=== PATIENT | male | born 1975 | race Caucasian/White ===

== ENCOUNTER 2020-04-16 12:19 | Inpatient (IN) | payer OTHER ==
--- NOTE | 2020-04-16 12:55 | BHS.RME ---
2018 N Coronavirus Screen - COVID-19 Screening Questions Dx of COVID-19 or had a positive test in the last 4 weeks?: No Contact with known/suspected COVID patient in last 14 days?: No Any of these symptoms or contact with someone who has?: None Traveled domestically/internationally in the last 14 days?: No Screen score: 0 Screen result: Further Evaluation Substance Use & Tx History - Substance Use History Alcohol Substance amount: 5 nips Frequency of use: Daily Substance route: Oral Date of Last Use: 04/15/20 (started age 17) Nicotine Substance amount: former smoker stopped 10 years ago - Last Treatment Date of last treatment: 2018 Treatment type: Substance Use Disorder (LEIDY) Where was last treatment: Detox Physical/Psych/Mental Status - Behavior General Behavior: Increased activity (restlessness, agitation) Eye Contact: Normal - Cooperativeness Cooperativeness: Cooperative - Thinking Thought Processes: Tight, Logical, Goal Directed - Physical Health Problems Is patient presently having any pain?: No Does patient presently have any injuries (include location): No Does patient currently have a fever: No Is patient : No CIWA Nausea/Vomitin Muscle Tremors: 4-Moderate,w/Arms Extend Anxiety: 4-Mod. Anxious/Guarded Agitation: 4-Moderately Restless Paroxysmal Sweats: 2 Orientation: 0-Oriented Tacttile Disturbances: 0-None Auditory Disturbances: 0-None Visual Disturbances: 0-None Headache: 0-None Present CIWA-Ar Total Score: 16
[2020-04-16 13:10] VITALS: BMI 23.7
--- NOTE | 2020-04-16 13:40 | HP ---
CIWA Score Nausea/Vomitin Muscle Tremors: 4-Moderate,w/Arms Extend Anxiety: 4-Mod. Anxious/Guarded Agitation: 4-Moderately Restless Paroxysmal Sweats: 2 Orientation: 0-Oriented Tacttile Disturbances: 0-None Auditory Disturbances: 0-None Visual Disturbances: 0-None Headache: 0-None Present CIWA-Ar Total Score: 16 - Admission Criteria OASAS Guidelines: Admission for Medically Managed Detox: Requires at least one of the followin. CIWA greater than 12 2. Seizures within the past 24 hours 3. Delirium tremens within the past 24 hours 4. Hallucinations within the past 24 hours 5. Acute intervention needed for co occurring medical disorder 6. Acute intervention needed for co occurring psychiatric disorder 7. Severe withdrawal that cannot be handled at a lower level of care (continued vomiting, continued diarrhea, abnormal vital signs) requiring intravenous medication and/or fluids 8. Admitting History and Physical - Admission Chief Complaint: 45 yo M presenting for detox from alcohol; "for my problem with alcohol." History of Present Illness: 45 yo M presenting for detox from alcohol; "for my problem with alcohol." This is the pt's first time at [facility]. Pt last completed detox at [facility] in May 2019 (completed 5 days of detox). Pt reports being sober for 6-7 weeks and relapsing briefly (a few days) in July 2019 but then being sober again until January 2020. After relapsing in December, he hasn't had any periods of sobriety. Regarding his relapses, pt reports multiple tragic deaths in family in the past that cause chronic anxiety/depression (including sister committing suicide), declining health of his father, losing job, and interpersonal stressors with and kids. Pt reports "will power" and "keeping busy" helped him stay sober. Pt reports no prior detox admissions prior to [facility]. Pt reports no previous seizures; 1 blackout a year ago. Pt reports accidental OD of wellbutrin 2 months ago; was treated in hospital and admitted for 5 days in a psychiatric yost. PMH: HLD (lipitor), HTN (?amlodipine) PSH: plastic surgery (cosmetic) for bilateral ears in December Pscyh: chronic anxiety, depression, insomnia (wellbutrin, quetiapine, and ambien) Soc/Domiciled: Lives at home with and 2 kids. Legal: none 2019 N Coronavirus Screen - COVID-19 Screening Questions Dx of COVID-19 or had a positive test in the last 4 weeks?: No Contact with known/suspected COVID patient in last 14 days?: No Any of these symptoms or contact with someone who has?: None Traveled domestically/internationally in the last 14 days?: No Screen score: 0 Screen result: Further Evaluation Substance Use & Tx History - Substance Use History Alcohol Substance amount: 5 nips Frequency of use: Daily Substance route: Oral Date of Last Use: 04/15/20 (started age 17) Nicotine Substance amount: former smoker stopped 10 years ago - Last Treatment Date of last treatment: 2018 Treatment type: Substance Use Disorder (LEIDY) Where was last treatment: Detox History Source: Patient Limitations to Obtaining History: No Limitations - Past Medical History Cardiovascular: Yes: HTN, Hyperlipdemia Admission ROS [facility] - Ebola screening Have you traveled outside of the country in the last 21 days: No Have you been sick,other than usual withdrawal symptoms: No Do you have a fever: No - Review of Systems Constitutional: Diaphoresis (paroxysmal sweats), Changes in sleep (insomnia) EENT: reports: Blurred Vision (reports recently he hasn't been able to see clearly up close) Respiratory: reports: No Symptoms reported Cardiac: reports: No Symptoms Reported GI: reports: Nausea : reports: No Symptoms Reported Musculoskeletal: reports: No Symptoms Reported Integumentary: reports: No Symptoms Reported Neuro: reports: Tremors (mild trmeors) Hematology: reports: No Symptoms Reported Psychiatric: reports: Agitated (moderately restless), Anxious (moderately anxious), Depressed (mildly depressed (no SI/HI); no SAs previously) Patient History - Smoking Cessation Smoking history: Former smoker Have you smoked in the past 12 months: No Initiated information on smoking cessation: No Admission Physical Exam [facility] - Vital Signs Vital Signs: Vital Signs - 24 hr 04/16/20 13:01 Temperature 97.5 F L Pulse Rate 97 H Respiratory 18 Rate Blood Pressure 144/86 - Physical General Appearance: Yes: No Apparent Distress, Nourished, Appropriately Dressed HEENTM: Yes: EOMI, Hearing grossly Normal, Normocephalic, Normal Voice Respiratory: Yes: Lungs Clear, Normal Breath Sounds, No Respiratory Distress, No Accessory Muscle Use Neck: Yes: Supple, Trachea in good position Breast: Yes: Breast Exam Deferred Cardiology: Yes: Regular Rhythm Abdominal: Yes: Normal Bowel Sounds, Non Tender, Flat, Soft Genitourinary: Yes: Other (deferred) Back: Yes: Normal Inspection Musculoskeletal: Yes: full range of Motion, Gait Steady Extremities: Yes: Normal Inspection, Normal Range of Motion, Non-Tender, Tremors (mild) Neurological: Yes: Fully Oriented, Alert, Motor Strength 5/5 Integumentary: Yes: Normal Color, Dry, Warm - Diagnostic (1) Alcohol dependence Current Visit: Yes Status: Acute Qualifiers: Substance use status: in withdrawal Complication of substance-induced condition: uncomplicated Qualified Code(s): F10.230 - Alcohol dependence with withdrawal, uncomplicated (2) HTN (hypertension) Current Visit: Yes Status: Acute Qualifiers: Hypertension type: unspecified Qualified Code(s): I10 - Essential (primary) hypertension (3) HLD (hyperlipidemia) Current Visit: Yes Status: Acute Qualifiers: Hyperlipidemia type: unspecified Qualified Code(s): E78.5 - Hyperlipidemia, unspecified (4) Depression Current Visit: Yes Status: Chronic Qualifiers: Depression Type: major depressive disorder Major depression recurrence: unspecified whether recurrent Active/Remission status: currently active Major depression episode severity: mild Qualified Code(s): F32.0 - Major depressive disorder, single episode, mild (5) Insomnia Current Visit: Yes Status: Chronic Qualifiers: Insomnia type: unspecified Qualified Code(s): G47.00 - Insomnia, unspecified (6) Anxiety Current Visit: Yes Status: Chronic Cleared for Admission S - Detox or Rehab [facility] Level of Care: Medically Managed Detox Regimen/Protocol: Librium Breathalyzer - Breathalyzer Breathalyzer: 0 Urine Drug Screen - Test Device Lot number: [id number] Expiration date: 10/08/21 - Control Is test valid?: Yes - Results Drug screen NEGATIVE: Yes Inpatient Rehab Admission - Rehab Decision to Admit Inpatient rehab admission?: No
[2020-04-16] MEDS ORDERED: MAG HYDROX/AL HYDROX/SIMETH 30 ML UNIT-DOSE CUP PO PRN (13:57)
[2020-04-16] MEDS ORDERED: METHOCARBAMOL 500 MG TABLET PO PRN (13:57)
[2020-04-16] MEDS ORDERED: ACETAMINOPHEN 325 MG TABLET (FP) PO PRN ×2 (13:57)
[2020-04-16] MEDS ORDERED: BISMUTH SUBSALICYLATE 262 MG/15 ML BTL PO PRN (13:57)
[2020-04-16] MEDS ORDERED: NICOTINE POLACRILEX 2 MG GUM BUC PRN (13:57)
[2020-04-16] MEDS ORDERED: MAGNESIUM CITRATE 300 ML BOTTLE PO PRN (13:57)
[2020-04-16] MEDS ORDERED: ONDANSETRON *ODT* 4 MG TABLET SL PRN (13:57)
[2020-04-16] MEDS ORDERED: MENTHOL/PHENOL 1 EACH UD MM PRN (13:57)
[2020-04-16] MEDS ORDERED: chlordiazePOXIDE HCL 25 MG CAPSULE PO PRN (13:57)
[2020-04-16] MEDS ORDERED: IBUPROFEN 400 MG TABLET (FP) PO PRN (13:57)
[2020-04-16] MEDS ORDERED: MAGNESIUM HYDROX 2400MG/30ML ORAL SUSPENSION 30 ML CUP PO PRN (13:57)
[2020-04-16] MEDS ORDERED: hydrOXYzine PAMOATE 25 MG CAPSULE (FP) PO SCH (14:00)
--- NOTE | 2020-04-16 14:17 | PN ---
Teaching Attending Note Name of Resident: Luciano Cosme ATTENDING PHYSICIAN STATEMENT I saw and evaluated the patient. I reviewed the resident's note and discussed the case with the resident. I agree with the resident's findings and plan as documented. SUBJECTIVE: OBJECTIVE: ASSESSMENT AND PLAN: 1. Alcohol withdrawal, uncomplicated Plan 1. Librium detox protocol
[2020-04-16] MEDS: NICOTINE 7 MG/24 HOURS TOPICAL PATCH TD SCH (15:12)
[2020-04-16] MEDS: hydrOXYzine PAMOATE 25 MG CAPSULE (FP) PO PRN ×2 (16:02→22:16)
[2020-04-16] MEDS: chlordiazePOXIDE HCL 25 MG CAPSULE PO SCH ×2 (17:58→22:16)
[2020-04-16] MEDS ORDERED: diphenhydrAMINE HCL 25 MG CAPSULE (FP) PO ONE (21:00)
[2020-04-16] MEDS ORDERED: MELATONIN 5 MG TABLETS PO SCH (22:00)
[2020-04-16] MEDS ORDERED: QUEtiapine FUMARATE 50 MG TABLET PO ONE (22:00)
[2020-04-16] MEDS: THIAMINE HCL 100 MG TABLET (FP) PO SCH (22:16)
[2020-04-16] MEDS: ATORVASTATIN CA 20 MG TABLET (FP) PO SCH (22:16)
[2020-04-17] MEDS: chlordiazePOXIDE HCL 25 MG CAPSULE PO SCH ×4 (06:08→22:04)
[2020-04-17 10:06] LABS: ALBUMIN 3.6 g/dl (3.4-5.0); BLOOD UREA NITROGEN 11.8 mg/dL (7-18); CALCIUM 9.7 mg/dL (8.5-10.1); POTASSIUM 3.8 mmol/L (3.5-5.1); TOT PROT 7.8 g/dl (6.4-8.2)
[2020-04-17 10:09] LABS: HEMATOCRIT 35.9 % (35.4-49); HEMOGLOBIN 11.3 GM/dL (11.7-16.9); MCH 25.1 pg (25.7-33.7); MCHC 31.5 g/dl (32.0-35.9); MEAN CELL VOLUME 79.7 fl (80-96); MEAN PLT VOLUME 8.5 fl (7.5-11.1); PLATELET COUNT 243 K/MM3 (134-434); RDW 19.6 % (11.9-15.9); WHITE BLOOD COUNT 12.7 K/mm3 (4.0-10.0)
--- NOTE | 2020-04-17 10:10 | CONSULT ---
[facility] Psychiatric Consult - Data Date of interview: 04/17/20 Admission source: [facility] Identifying data: Mr Phipps is a 45 years old male, father of 2 sons, unemployed receiving unemployment benefits, living with and children seeking detox treatment for alcohol Substance Abuse History: Reports history of alcohol use. Refer to addiction counselor's summary for further information Medical History: Significant for hypertension, dyslipidemia and history of plastic surgery for both ears in December 2019. Psychiatric History: This is patient's first admission to this facility. He reports that his first psychiatric contact occured at age 26 when he was diagnosed with MDD, OCD by private psychiatrist in [place]. He said that he was started on Prozac which he took for 6-7 months. Then he became depressed again in 2004 after his older son was born. He was started on Wellbutrin and Ambien which he took for a year. In October after his mother from cancer, he became depressed and he was Seroquel, Ambien in addition to restarting Wellbutrin. He said that 11 months after his mother's his sister commited suicide and depression took a turn for the worst and he has been on medication continously since. He currently receives outpatient psychiatric treatment at [facility] and he is prescribed Wellbutrin XL 150 mg/day, Seroquel 50 mg/hs and Ambien 10 mg/hs. Reports one previous psychiatric hospitalization 2 months ago at [facility] for alleged accidental pverdose on Wellbutrin. 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 At present, denies experiencing depressive symptoms, S/H ideations. However, reports sleeping poorly Physical/Sexual Abuse/Trauma History: Denies history of abuse as a child or DV relationship as an adult Mental Status Exam - Mental Status Exam Alert and Oriented to: Time, Place, Person Cognitive Function: Fair Patient Appearance: Well Groomed Mood: Hopeful, Euthymic Affect: Appropriate Patient Behavior: Cooperative Speech Pattern: Clear Voice Loudness: Normal Thought Process: Intact, Goal Oriented Hallucinations: Denies Suicidal Ideation: Denies Homicidal Ideation: Denies Insight/Judgement: Poor Sleep: Poorly Appetite: Good Muscle strength/Tone: Normal Gait/Station: Normal Psychiatric Findings - Problem List ([place] 1, 2,3) (1) MDD (major depressive disorder) Current Visit: Yes Status: Chronic (2) OCD (obsessive compulsive disorder) Current Visit: Yes Status: Ruled-out (3) Alcohol-induced sleep disorder Current Visit: Yes Status: Acute (4) Alcohol dependence, uncomplicated Current Visit: Yes Status: Acute (5) HLD (hyperlipidemia) Current Visit: Yes Status: Chronic Qualifiers: Hyperlipidemia type: unspecified Qualified Code(s): E78.5 - Hyperlipidemia, unspecified (6) HTN (hypertension) Current Visit: Yes Status: Chronic Qualifiers: Hypertension type: unspecified Qualified Code(s): I10 - Essential (primary) hypertension - Initial Treatment Plan Initial Treatment Plan: 1) Continue Wellbutrin XL 150 mg po daily and Seroquel 50 mg po HS. 2) Start Belsomra 10 mg po HS prn for insomnia. 3) Continue inpatient detoxification
[2020-04-17] MEDS: NICOTINE 7 MG/24 HOURS TOPICAL PATCH TD SCH (10:45)
[2020-04-17] MEDS: amLODIPine BESYLATE 5 MG TABLET (FP) PO SCH (10:46)
[2020-04-17] MEDS: PATIENT'S OWN MEDICATION (NON-FORMULARY) (Fenofibrate Nanocrystallized [Fenofibrate] 145 M PO SCH (10:46)
[2020-04-17] MEDS: PRENATAL VITAMINS W/ FOLIC ACID TABLET (FP) PO SCH (10:48)
[2020-04-17] MEDS: hydrOXYzine PAMOATE 25 MG CAPSULE (FP) PO PRN ×2 (10:48→19:20)
--- NOTE | 2020-04-17 12:52 | PN ---
S CIWA - CIWA Score Nausea/Vomitin-No Nausea/No Vomiting Muscle Tremors: 3 Anxiety: 2 Agitation: 3 Paroxysmal Sweats: 3 Orientation: 0-Oriented Tacttile Disturbances: 0-None Auditory Disturbances: 0-None Visual Disturbances: 0-None Headache: 0-None Present CIWA-Ar Total Score: 11 S Progress Note (SOAP) Subjective: sweats shakes interrupted sleep agitation Objective: 04/17/20 13:10 Vital Signs Temperature 97.3 F L 04/17/20 09:03 Pulse Rate 93 H 04/17/20 09:03 Respiratory Rate 18 04/17/20 09:03 Blood Pressure 117/64 04/17/20 09:03 O2 Sat by Pulse Oximetry (%) 96 04/17/20 05:37 Laboratory Tests 04/17/20 04/17/20 04/17/20 07:50 07:50 07:50 WBC 12.7 H RBC 4.50 Hgb 11.3 L Hct 35.9 MCV 79.7 L MCH 25.1 L MCHC 31.5 L RDW 19.6 H Plt Count 243 MPV 8.5 Sodium 137 Potassium 3.8 Chloride 102 Carbon Dioxide 31 Anion Gap 4 L BUN 11.8 Creatinine 1.0 Est GFR (CKD-EPI)AfAm 104.88 Est GFR (CKD-EPI)NonAf 90.49 Random Glucose 136 H Calcium 9.7 Total Bilirubin 1.0 AST 11 L ALT 17 Alkaline Phosphatase 74 Total Protein 7.8 Albumin 3.6 Syphilis Serology Non-reactive labs noted aaox3 ambulating no acute distress Assessment: 04/17/20 13:10 withdrawals Plan: continue detox
--- NOTE | 2020-04-17 13:43 | EKG ---
Test Reason : Blood Pressure : / mmHG Vent. Rate : 097 BPM Atrial Rate : 097 BPM P-R Int : 144 ms QRS Dur : 098 ms QT Int : 354 ms P-R-T Axes : 040 033 043 degrees QTc Int : 449 ms NORMAL SINUS RHYTHM NONSPECIFIC INTRAVENTRICULAR CONDUCTION DEFECT NO PREVIOUS ECGS AVAILABLE Confirmed by KEVON POWER MD ([id number]) on 04/17/2020 1:43:08 PM Referred By: Confirmed By:KEVON POWER MD
[2020-04-17] MEDS: ATORVASTATIN CA 20 MG TABLET (FP) PO SCH (22:04)
[2020-04-17] MEDS: QUEtiapine FUMARATE 50 MG TABLET PO SCH (22:04)
[2020-04-17] MEDS: THIAMINE HCL 100 MG TABLET (FP) PO SCH (22:04)
[2020-04-17] MEDS: SUVOREXANT 10 MG TABLET PO PRN (22:49)
[2020-04-18] MEDS: chlordiazePOXIDE HCL 25 MG CAPSULE PO SCH ×2 (05:45→10:31)
[2020-04-18] MEDS: NICOTINE 7 MG/24 HOURS TOPICAL PATCH TD SCH (10:31)
[2020-04-18] MEDS: PATIENT'S OWN MEDICATION (NON-FORMULARY) (Fenofibrate Nanocrystallized [Fenofibrate] 145 M PO SCH (10:31)
[2020-04-18] MEDS: amLODIPine BESYLATE 5 MG TABLET (FP) PO SCH (10:31)
[2020-04-18] MEDS: PRENATAL VITAMINS W/ FOLIC ACID TABLET (FP) PO SCH (10:31)
[2020-04-18] MEDS ORDERED: chlordiazePOXIDE HCL 10 MG CAPSULE PO ONE ×2 (14:00→22:00)
--- NOTE | 2020-04-18 18:57 | PN ---
S CIWA - CIWA Score Nausea/Vomitin-No Nausea/No Vomiting Muscle Tremors: None Anxiety: 0-No Anxiety, at Ease Agitation: 2 Paroxysmal Sweats: 1-Minimal Palms Moist Orientation: 0-Oriented Tacttile Disturbances: 0-None Auditory Disturbances: 0-None Visual Disturbances: 1-Very Mild Sensitivity Headache: 0-None Present CIWA-Ar Total Score: 4 BHS Progress Note (SOAP) Subjective: Patient reports that current Withdrawal / Detox symptoms are minimal in degree today and that he feels well overall. Objective: Patient A & O X 3, Observed Ambulating on Detox Unit Unassisted. In No Acute Distress. 04/18/20 18:51 Vital Signs Temperature 98.0 F 04/18/20 16:50 Pulse Rate 97 H 04/18/20 16:50 Respiratory Rate 19 04/18/20 16:50 Blood Pressure 122/82 04/18/20 16:50 O2 Sat by Pulse Oximetry (%) 100 04/18/20 16:50 Laboratory Tests 04/16/20 04/17/20 04/17/20 15:00 07:50 07:50 WBC 12.7 H RBC 4.50 Hgb 11.3 L Hct 35.9 MCV 79.7 L MCH 25.1 L MCHC 31.5 L RDW 19.6 H Plt Count 243 MPV 8.5 Sodium 137 Potassium 3.8 Chloride 102 Carbon Dioxide 31 Anion Gap 4 L BUN 11.8 Creatinine 1.0 Est GFR (CKD-EPI)AfAm 104.88 Est GFR (CKD-EPI)NonAf 90.49 Random Glucose 136 H Calcium 9.7 Total Bilirubin 1.0 AST 11 L ALT 17 Alkaline Phosphatase 74 Total Protein 7.8 Albumin 3.6 Syphilis Serology COVID-19 (MICHAEL) Not detected 04/17/20 07:50 WBC RBC Hgb Hct MCV MCH MCHC RDW Plt Count MPV Sodium Potassium Chloride Carbon Dioxide Anion Gap BUN Creatinine Est GFR (CKD-EPI)AfAm Est GFR (CKD-EPI)NonAf Random Glucose Calcium Total Bilirubin AST ALT Alkaline Phosphatase Total Protein Albumin Syphilis Serology Non-reactive COVID-19 (MICHAEL) Lab results noted. Elevated WBC level (12.7) noted. Patient deneis SOB, cough, and chest pain. Patient denies any unusual urinary complaints (burning, pain, frequency, urgency, hesitancy, visualization of blood in urine). Patient afebrile. 04/18/20 18:52 Assessment: 04/18/20 18:52 WITHDRAWAL SYMPTOMS. HYPERGLYCEMIA. ANEMIA. 04/18/20 18:52 Plan: Continue Detox. Increase Daily Oral Water Intake. Patient is currently receiving daily MVI containing B Vitamins and Iron while admitted for Detox. Patient denies known history of DM. Patient advised to follow-up with [facility] [employer] after Discharge from Detox for general medical assessment and for elevated Glucose level noted on Detox Admission Laboratory assessment. Patient verbalized understanding of recommendation. Copies of results of all labs drawn while admi tted for detox given to patient at time of discharge from detox unit. Since Patient reports that current withdrawal / Detox symptoms are minimal in degree and that he feels well overall, at Patients request, he was granted an early discharge from Detox unit tomorrow so that he may return home to attend to personal matters.
[2020-04-18] MEDS: QUEtiapine FUMARATE 50 MG TABLET PO SCH (21:52)
[2020-04-18] MEDS: ATORVASTATIN CA 20 MG TABLET (FP) PO SCH (21:52)
[2020-04-18] MEDS: THIAMINE HCL 100 MG TABLET (FP) PO SCH (21:53)
[2020-04-18] MEDS: SUVOREXANT 10 MG TABLET PO PRN (21:55)
[2020-04-19] MEDS ORDERED: chlordiazePOXIDE HCL 10 MG CAPSULE PO PRN
[2020-04-19] MEDS ORDERED: chlordiazePOXIDE HCL 10 MG CAPSULE PO ONE (05:00)
[2020-04-19] MEDS ORDERED: chlordiazePOXIDE HCL 10 MG CAPSULE PO SCH (05:00)
[2020-04-19 06:24] VITALS: BP 102/59; PULSE 80; TEMP 97.3
--- NOTE | 2020-04-19 10:23 | DS ---
[facility] Detox Discharge Summary Admission Date: 04/16/20 Discharge Date: 04/19/20 - History Present History: Alcohol Dependence Additional Comments: Detox completed without any adverse effects,patient stable for discharge this morning Alert and oriented x3, in no acute respiratory distress. Full ROM, ambulating in unit without any assistance. Encouraged to followup with aftercare. Pertinent Past History: History of HTN, HLD,b/l ear surgery (December 2019) - Physical Exam Results Vital Signs: Vital Signs Temperature 97.3 F L 04/19/20 06:23 Pulse Rate 80 04/19/20 06:23 Respiratory Rate 20 04/19/20 06:23 Blood Pressure 102/59 L 04/19/20 06:23 O2 Sat by Pulse Oximetry (%) 100 04/19/20 06:23 Vital Signs 04/19/20 06:23 Temperature 97.3 F L Pulse Rate 80 Respiratory 20 Rate Blood Pressure 102/59 L O2 Sat by Pulse 100 Oximetry (%) Laboratory Last Values WBC 12.7 K/mm3 (4.0-10.0) H 04/17/20 07:50 RBC 4.50 M/mm3 (4.00-5.60) 04/17/20 07:50 Hgb 11.3 GM/dL (11.7-16.9) L 04/17/20 07:50 Hct 35.9 % (35.4-49) 04/17/20 07:50 MCV 79.7 fl (80-96) L 04/17/20 07:50 MCH 25.1 pg (25.7-33.7) L 04/17/20 07:50 MCHC 31.5 g/dl (32.0-35.9) L 04/17/20 07:50 RDW 19.6 % (11.9-15.9) H 04/17/20 07:50 Plt Count 243 K/MM3 (134-434) 04/17/20 07:50 MPV 8.5 fl (7.5-11.1) 04/17/20 07:50 Sodium 137 mmol/L (136-145) 04/17/20 07:50 Potassium 3.8 mmol/L (3.5-5.1) 04/17/20 07:50 Chloride 102 mmol/L (98-107) 04/17/20 07:50 Carbon Dioxide 31 mmol/L (21-32) 04/17/20 07:50 Anion Gap 4 MMOL/L (8-16) L 04/17/20 07:50 BUN 11.8 mg/dL (7-18) 04/17/20 07:50 Creatinine 1.0 mg/dL (0.55-1.3) 04/17/20 07:50 Est GFR (CKD-EPI)AfAm 104.88 04/17/20 07:50 Est GFR (CKD-EPI)NonAf 90.49 04/17/20 07:50 Random Glucose 136 mg/dL (74-106) H 04/17/20 07:50 Calcium 9.7 mg/dL (8.5-10.1) 04/17/20 07:50 Total Bilirubin 1.0 mg/dL (0.2-1) 04/17/20 07:50 AST 11 U/L (15-37) L 04/17/20 07:50 ALT 17 U/L (13-61) 04/17/20 07:50 Alkaline Phosphatase 74 U/L (45-117) 04/17/20 07:50 Total Protein 7.8 g/dl (6.4-8.2) 04/17/20 07:50 Albumin 3.6 g/dl (3.4-5.0) 04/17/20 07:50 Syphilis Serology Non-reactive (NONREACTIVE) 04/17/20 07:50 COVID-19 (MICHAEL) Not detected (Not Detected) 04/16/20 15:00 Labs noted. Pertinent Admission Physical Exam Findings: Withdrawal symptoms - Treatment Hospital Course: Detox Protocol Followed, Detoxed Safely, Responded well, Discharged Condition Good - Medication Discharge Medications: Ambulatory Orders Amlodipine Besylate 5 mg PO DAILY 04/16/20 Atorvastatin Calcium 20 mg PO DAILY 04/16/20 Bupropion HCl [Bupropion Xl] 150 mg PO DAILY 04/16/20 Fenofibrate Nanocrystallized [Fenofibrate] 145 mg PO DAILY 04/16/20 Quetiapine Fumarate [Seroquel -] 50 mg PO HS 04/16/20 Zolpidem Tartrate [Ambien] 10 mg PO HS 04/16/20 - Diagnosis (1) Alcohol dependence Status: Acute Qualifiers: Substance use status: in withdrawal Complication of substance-induced condition: uncomplicated Qualified Code(s): F10.230 - Alcohol dependence with withdrawal, uncomplicated (2) HLD (hyperlipidemia) Status: Chronic Qualifiers: Hyperlipidemia type: unspecified Qualified Code(s): E78.5 - Hyperlipidemia, unspecified (3) HTN (hypertension) Status: Chronic Qualifiers: Hypertension type: unspecified Qualified Code(s): I10 - Essential (primary) hypertension - AMA Did Patient Leave Against Medical Advice: No
[2020-04-20] MEDS ORDERED: chlordiazePOXIDE HCL 10 MG CAPSULE PO SCH (05:00)
[2020-04-21] MEDS ORDERED: chlordiazePOXIDE HCL 10 MG CAPSULE PO ONE (05:00)
== END 2020-04-19 08:56 | disposition home or self-care (01) | DRG 897 ==
LOC: YASAS 12:19 → Y6N 14:17
PROVIDERS: ADMIT Allergy & Immunology; ATTEND Allergy & Immunology
PROC: HZ2ZZZZ Detoxification Services for Substance Abuse Treatment (ICD-10-PCS; principal; 2020-04-16)
DX: F10.230 Alcohol dependence with withdrawal, uncomplicated (principal); F32.0 Major depressive disorder, single episode, mild; F10.282 Alcohol dependence with alcohol-induced sleep disorder; F41.9 Anxiety disorder, unspecified; D64.9 Anemia, unspecified; E78.5 Hyperlipidemia, unspecified; G47.00 Insomnia, unspecified; I10 Essential (primary) hypertension; R73.9 Hyperglycemia, unspecified; Z56.0 Unemployment, unspecified; Z87.891 Personal history of nicotine dependence
CPT/HCPCS: 36415; 80053; 85027; 86780; 93005; 93010; C9803; U0003